=== PATIENT | male | born 1945 | race Caucasian/White ===

== ENCOUNTER 2017-02-01 16:47 | Emergency (ER) | payer MEDICARE, OTHER ==
[2017-02-01 20:42] LABS: HEMOGLOBIN 14.1 gm/dl (14.0-17.5); RED BLOOD COUNT 4.63 M/UL (4.20-5.50); WHITE BLOOD COUNT 8.8 K/UL (4.5-11.0)
[2017-02-01 21:14] LABS: BUN/CREATININE RATIO 16 (0-10)
== END 2017-02-02 | disposition home or self-care (01) ==
LOC: ER1 16:47
PROVIDERS: Emergency Medicine
DX: J06.9 Acute upper respiratory infection, unspecified (principal); R65.10 Systemic inflammatory response syndrome (SIRS) of non-infectious origin without acute organ dysfunction; J20.9 Acute bronchitis, unspecified
CPT/HCPCS: 36415; 71020; 80053; 81001; 83605; 85025; 87040; 87081; 87880; 94664; 96360; 96361; 96372; 99285; J1100; J7030

== ENCOUNTER → 2021-04-01 | Outpatient (CLI) | payer MEDICARE, OTHER ==
[2021-04-01 13:47] LABS: HEMOGLOBIN 15.6 gm/dl (14.0-17.5); RED BLOOD COUNT 4.97 M/UL (4.20-5.50); WHITE BLOOD COUNT 4.5 K/UL (4.5-11.0)
[2021-04-01 14:15] LABS: BUN/CREATININE RATIO 24 (0-10)
[2021-04-02 08:14] LABS: THYROXINE (T4) 7.3 ug/dL (4.5-12.0)
== END ==
LOC: LAB 12:22
PROVIDERS: Nurse Practitioner
DX: Z12.5 Encounter for screening for malignant neoplasm of prostate (principal); E11.9 Type 2 diabetes mellitus without complications; E78.5 Hyperlipidemia, unspecified; I10 Essential (primary) hypertension; G90.09 Other idiopathic peripheral autonomic neuropathy; R53.82 Chronic fatigue, unspecified
CPT/HCPCS: 80053; 80061; 81001; 83036; 84436; 84443; 84480; 85025; G0103